=== PATIENT | male | born 1990 | race Caucasian/White ===

== ENCOUNTER 2024-03-28 17:57 | Emergency (ER) | payer MEDICAID, OTHER ==
[~2024-03-28] VITALS: Ht 177.8 cm; Wt 60.0 kg
[2024-03-28 18:03] VITALS: BP 91/52; PULSE 72; RESP 18; TEMP 98.3; O2SAT 100
[2024-03-28] MEDS: ACETAMINOPHEN 325MG TABLET PO ONE (20:44)
[2024-03-28] MEDS ORDERED: TOPUD MT (20:54)
== END 2024-03-28 21:36 | disposition home or self-care (01) ==
LOC: ER 17:57
DX: S90.31XA Contusion of right foot, initial encounter (principal); Z98.890 Other specified postprocedural states; W23.2XXA Caught, crushed, jammed or pinched between a moving and stationary object, initial encounter; Y93.89 Activity, other specified; Y92.89 Other specified places as the place of occurrence of the external cause; Y99.8 Other external cause status
CPT/HCPCS: 73630; 99283